=== PATIENT | female | born 1960 | race Two or more races ===

== ENCOUNTER 2020-05-18 21:39 | Inpatient (IN) | payer SELFPAY ==
[~2020-05-18] VITALS: Ht 165.1 cm; Wt 54.3 kg
[2020-05-18] MEDS ORDERED: InsuLIN REG 1unit/0.01ml Soln (100units/ml) IV ONE (22:15)
[2020-05-18] MEDS ORDERED: SODIUM CHLORIDE 0.9% 1,000 ML IV ONE (22:15)
[2020-05-18 23:53] LABS: Basophils # (auto) 0.1 10 ^3/uL (0-0.2); Eosinophils # (auto) 0 10 ^3/uL (0-0.8)
[2020-05-18 23:55] LABS: Basophils % (auto) 0.4 % (0.0-2.0); Hematocrit 49.7 % (36.0-46.0); Hemoglobin 15.5 g/dL (12.2-16.2); Lymphocytes # (auto) 0.9 10 ^3/uL (0.4-5.4); Lymphocytes % (auto) 7.9 % (10.0-50.0); Mean Corpuscular Hemoglobin 32.1 pg (28.0-32.0); Mean Corpuscular Hgb Conc. 31.2 g/dL (32.0-36.0); Mean Corpuscular Volume 102.7 fL (80.0-100.0); Monocytes # (auto) 1.2 10 ^3/uL (0-1.3); Monocytes % (auto) 10.8 % (0.0-12.0); Neutrophils # (auto) 9.3 10 ^3/uL (1.6-8.6); Neutrophils % (auto) 80.9 % (37.0-80.0); Platelet Count (auto) 274 10^3/uL (140-450); Red Blood Cells 4.84 10^6/uL (4.0-5.20); Red Cell Distribution Width 14.4 % (11.8-14.3); White Blood Cell 11.5 10^3/uL (4.4-10.8)
[2020-05-19] MEDS ORDERED: SODIUM BICARBONATE 8.4 % INJ 50ML VIAL IV ONE
[2020-05-19] MEDS ORDERED: SODIUM CHLORIDE 0.9% 1,000 ML IV ONE
[2020-05-19 00:07] LABS: Albumin 3.2 g/dL (3.4-5.0); Anion Gap 23 (5-15); Blood Urea Nitrogen 35 mg/dL (7-18); Calcium 8.2 mg/dL (8.5-10.1); Chloride 119 mmol/L (98-107); Sodium 150 mmol/L (136-145)
[2020-05-19 00:12] LABS: Carbon Dioxide 8 mmol/L (21-32); Potassium 2.8 mmol/L (3.5-5.1)
[2020-05-19 00:15] LABS: Alkaline Phosphatase 99 U/L (45-117)
[2020-05-19 00:23] LABS: Alanine Aminotransferase 22 U/L (13-56); Aspartate Aminotransferase 24 U/L (15-37); BUN/Creatinine Ratio 19.7; GFR African American 37 mL/min; GFR Non-African American 31 mL/min
[2020-05-19 00:26] LABS: Bilirubin, Total 0.4 mg/dL (0.2-1.0); Total Protein 7.6 g/dL (6.4-8.2)
[2020-05-19] MEDS ORDERED: POTASSIUM EFFERVESENT TAB 25 MEQ GT ONE (00:30)
[2020-05-19 00:34] LABS: Glucose 642 mg/dL (74-106)
[2020-05-19] MEDS ORDERED: INSULIN LANTUS (GLARGINE) 1 /0.01ml (100units/ml) SC ONE (00:45)
[2020-05-19] MEDS ORDERED: DEXTROSE (50%) 50ML SYRG IV PRN (00:45)
[2020-05-19] MEDS ORDERED: InsuLIN REG 1unit/0.01ml Soln (100units/ml) ONE (00:48)
[2020-05-19] MEDS: InsuLIN R (HUMAN) 100 UNITS in SODIUM CHL 0.9% 99 ML IV SCH ×3 (00:55→10:34)
[2020-05-19 01:39] LABS: Urine Bacteria FEW /hpf (None Seen); Urine Blood 2+ /uL (Negative); Urine Hyaline Cast FEW /lpf (0 - 2); Urine Mucus FEW (None Seen); Urine Specific Gravity 1.023 (1.001-1.035); Urine WBC 2 /hpf (0 - 5)
[2020-05-19 01:47] LABS: Alcohol, Urine < 3.0 mg/dL (0-10); Amphetamine Screen, Urine NEGATIVE (NEGATIVE); Barbiturate Scree,Urine NEGATIVE (NEGATIVE); Benzodiazephine Screen, Urine NEGATIVE (NEGATIVE); Cannabinoid Screen, Urine NEGATIVE (NEGATIVE); Cocaine Screen, Urine NEGATIVE (NEGATIVE); Opiate Scree,Urine NEGATIVE (NEGATIVE); Phencyclidine Screen, Urine NEGATIVE (NEGATIVE)
[2020-05-19] MEDS: ACCU-CHEK COMFORT CURVE STRIP VI SCH ×14 (02:40→22:41)
[2020-05-19] MEDS ORDERED: LORazepam 2MG/ML-1ML VIAL IV ONE (06:00)
[2020-05-19] MEDS ORDERED: NITROGLYCERIN 0.4 MG SL TAB SL PRN (07:30)
[2020-05-19] MEDS ORDERED: ACETAMINOPHEN 325 MG TAB PO PRN (07:30)
[2020-05-19] MEDS ORDERED: DOCUSATE SOD 100 MG CAP PO PRN (07:30)
[2020-05-19] MEDS ORDERED: SOD CHL 0.45% 1,000 ML IV SCH (07:30)
[2020-05-19] MEDS ORDERED: ONDANSETRON HCL 4 MG/2 ML VIAL IV PRN ×2 (07:30→13:00)
[2020-05-19] MEDS ORDERED: LEVOTHYROXINE SODIUM 50 MCG TAB PO ONE (07:45)
[2020-05-19] MEDS: HEPARIN SODIUM (PORCINE) 5000 UNITS/ML 1ML VIAL SC SCH ×2 (07:45→10:00)
[2020-05-19 09:57] LABS: Basophils # (auto) 0 10 ^3/uL (0-0.2); Basophils % (auto) 0.2 % (0.0-2.0); Eosinophils # (auto) 0 10 ^3/uL (0-0.8); Hematocrit 45.8 % (36.0-46.0); Hemoglobin 15.6 g/dL (12.2-16.2); Lymphocytes # (auto) 0.7 10 ^3/uL (0.4-5.4); Lymphocytes % (auto) 7.6 % (10.0-50.0); Mean Corpuscular Hemoglobin 32.4 pg (28.0-32.0); Mean Corpuscular Volume 95.3 fL (80.0-100.0); Monocytes # (auto) 0.8 10 ^3/uL (0-1.3); Monocytes % (auto) 8.4 % (0.0-12.0); Neutrophils # (auto) 7.9 10 ^3/uL (1.6-8.6); Neutrophils % (auto) 83.8 % (37.0-80.0); Platelet Count (auto) 242 10^3/uL (140-450); Red Blood Cells 4.81 10^6/uL (4.0-5.20); Red Cell Distribution Width 12.9 % (11.8-14.3); White Blood Cell 9.4 10^3/uL (4.4-10.8)
[2020-05-19] MEDS ORDERED: HEPARIN SODIUM (PORCINE) 5000 UNITS/ML 1ML VIAL SC SCH (10:00)
[2020-05-19 10:25] LABS: Albumin 2.9 g/dL (3.4-5.0); BUN/Creatinine Ratio 21.2; Bilirubin, Total 0.3 mg/dL (0.2-1.0); Calcium 8.9 mg/dL (8.5-10.1)
[2020-05-19] MEDS: FAMOTIDINE (10MG/ML) 2ML VL IV SCH (10:34)
[2020-05-19] MEDS: AZITHROMYCIN 500MG/ 250ML 250 ML IV SCH (10:35)
[2020-05-19] MEDS ORDERED: ACETAMINOPHEN 500 MG TAB PO PRN (13:00)
[2020-05-19] MEDS: cefTRIAXone 1GM/50ML D5W 50 ML IV SCH (13:08)
[2020-05-19] MEDS: CHOLECALCIFEROL (VITD3) 2,000 UNIT CAP PO SCH (13:08)
[2020-05-19] MEDS: ASCORBIC ACID 1,000 MG TAB PO SCH (13:08)
[2020-05-19] MEDS: DexAMETHasone SOD PHOS 10MG/1ML VIAL INJ IV SCH (13:08)
[2020-05-19] MEDS: ZINC SULFATE 220mg CAP or TAB PO SCH (13:08)
[2020-05-19] MEDS: D5W 5% 1,000 ML IV SCH (13:21)
[2020-05-19] MEDS ORDERED: POTASSIUM CHLORIDE 40 MEQ, LIDOCAINE 1% (LOCAL ANESTH.) 4 ML in SODIUM CHL 0.9% 250 ML IV ONE (14:00)
[2020-05-19] MEDS ORDERED: DexAMETHasone SOD PHOS 4 MG/1ML SDV INJ ONE (14:34)
[2020-05-19] MEDS: FREE WATER PO SCH (18:13)
[2020-05-19] MEDS: BUDESONIDE (INHALATION) 180 MCG IH IN SCH (22:00)
[2020-05-20] MEDS: ACCU-CHEK COMFORT CURVE STRIP VI SCH ×9 (00:13→20:00)
[2020-05-20] MEDS: LORazepam 2MG/ML-1ML VIAL IV PRN ×4 (01:30→21:40)
[2020-05-20] MEDS: D5W 5% 1,000 ML IV SCH ×4 (03:41→23:47)
[2020-05-20] MEDS: FREE WATER PO SCH ×4 (06:00→17:43)
[2020-05-20 07:05] LABS: Basophils # (auto) 0 10 ^3/uL (0-0.2); Basophils % (auto) 0.3 % (0.0-2.0); Eosinophils # (auto) 0 10 ^3/uL (0-0.8); Hematocrit 44.8 % (36.0-46.0); Hemoglobin 15.1 g/dL (12.2-16.2); Lymphocytes # (auto) 0.9 10 ^3/uL (0.4-5.4); Lymphocytes % (auto) 10.8 % (10.0-50.0); Mean Corpuscular Hemoglobin 31.8 pg (28.0-32.0); Mean Corpuscular Hgb Conc. 33.6 g/dL (32.0-36.0); Mean Corpuscular Volume 94.5 fL (80.0-100.0); Monocytes # (auto) 0.4 10 ^3/uL (0-1.3); Monocytes % (auto) 5.3 % (0.0-12.0); Neutrophils # (auto) 7.1 10 ^3/uL (1.6-8.6); Neutrophils % (auto) 83.6 % (37.0-80.0); Nucleated Red Blood Cells % 0.1 %; Platelet Count (auto) 204 10^3/uL (140-450); Red Blood Cells 4.74 10^6/uL (4.0-5.20); Red Cell Distribution Width 13.1 % (11.8-14.3); White Blood Cell 8.5 10^3/uL (4.4-10.8)
[2020-05-20 07:11] LABS: Potassium 3.5 mmol/L (3.5-5.1)
[2020-05-20 07:19] LABS: Albumin 2.8 g/dL (3.4-5.0); BUN/Creatinine Ratio 13.6; Bilirubin, Total 0.3 mg/dL (0.2-1.0); Calcium 9.2 mg/dL (8.5-10.1); Total Protein 7.3 g/dL (6.4-8.2)
[2020-05-20] MEDS: DexAMETHasone SOD PHOS 10MG/1ML VIAL INJ IV SCH (08:07)
[2020-05-20] MEDS: cefTRIAXone 1GM/50ML D5W 50 ML IV SCH (08:07)
[2020-05-20] MEDS: AZITHROMYCIN 500MG/ 250ML 250 ML IV SCH (08:08)
[2020-05-20] MEDS: ASCORBIC ACID 1,000 MG TAB PO SCH (08:08)
[2020-05-20] MEDS: CHOLECALCIFEROL (VITD3) 2,000 UNIT CAP PO SCH (08:08)
[2020-05-20] MEDS: FAMOTIDINE (10MG/ML) 2ML VL IV SCH (08:08)
[2020-05-20] MEDS: HEPARIN SODIUM (PORCINE) 5000 UNITS/ML 1ML VIAL SC SCH (08:08)
[2020-05-20] MEDS: ZINC SULFATE 220mg CAP or TAB PO SCH (08:08)
[2020-05-20] MEDS ORDERED: diphenhdrAMINE HCL 50 MG/1 ML VL ONE (08:13)
[2020-05-20] MEDS: diphenhdrAMINE HCL 50 MG/1 ML VL IV PRN ×2 (08:25→23:14)
[2020-05-20] MEDS: BUDESONIDE (INHALATION) 180 MCG IH IN SCH ×2 (08:38→21:37)
[2020-05-20] MEDS ORDERED: DEXTROSE (50%) 50ML SYRG IV PRN ×3 (08:45→09:00)
[2020-05-20] MEDS ORDERED: ENOXAPARIN SOD 40 MG/0.4 ML SYRINGE SC SCH (10:00)
[2020-05-20] MEDS ORDERED: INSULIN LANTUS (GLARGINE) 1 /0.01ml (100units/ml) SC SCH (10:00)
[2020-05-20] MEDS ORDERED: AZITHROMYCIN 500MG/ 250ML 250 ML IV SCH (10:00)
[2020-05-20] MEDS: ENOXAPARIN SOD 40 MG/0.4 ML SYRINGE SC SCH (10:23)
[2020-05-20] MEDS ORDERED: InsuLIN REG 1unit/0.01ml Soln (100units/ml) SC SCH ×2 (12:00)
[2020-05-20] MEDS ORDERED: ACCU-CHEK COMFORT CURVE STRIP VI SCH ×2 (12:00)
[2020-05-20] MEDS: InsuLIN REG 1unit/0.01ml Soln (100units/ml) SC SCH ×3 (12:04→21:29)
[2020-05-20] MEDS: INSULIN LANTUS (GLARGINE) 1 /0.01ml (100units/ml) SC SCH (23:20)
[2020-05-21] MEDS: ACCU-CHEK COMFORT CURVE STRIP VI SCH ×6 (00:08→21:10)
[2020-05-21] MEDS: InsuLIN REG 1unit/0.01ml Soln (100units/ml) SC SCH ×6 (00:12→21:10)
[2020-05-21] MEDS: SOD CHL 0.45% 1,000 ML IV SCH ×2 (04:47→17:01)
[2020-05-21] MEDS: FREE WATER PO SCH ×4 (05:36→18:00)
[2020-05-21] MEDS: BUDESONIDE (INHALATION) 180 MCG IH IN SCH ×2 (08:23→18:03)
[2020-05-21] MEDS: ALBUTEROL SULF HFA 90MCG INH 200DOSE IN PRN (08:23)
[2020-05-21] MEDS: cefTRIAXone 1GM/50ML D5W 50 ML IV SCH (08:33)
[2020-05-21] MEDS: AZITHROMYCIN 500MG/ 250ML 250 ML IV SCH (08:33)
[2020-05-21] MEDS: ZINC SULFATE 220mg CAP or TAB PO SCH (08:33)
[2020-05-21] MEDS: FAMOTIDINE (10MG/ML) 2ML VL IV SCH (08:33)
[2020-05-21] MEDS: ASCORBIC ACID 1,000 MG TAB PO SCH (08:33)
[2020-05-21] MEDS: DexAMETHasone SOD PHOS 10MG/1ML VIAL INJ IV SCH (08:33)
[2020-05-21] MEDS: ENOXAPARIN SOD 40 MG/0.4 ML SYRINGE SC SCH (08:34)
[2020-05-21] MEDS: LORazepam 2MG/ML-1ML VIAL IV PRN ×3 (08:34→16:48)
[2020-05-21] MEDS: CHOLECALCIFEROL (VITD3) 2,000 UNIT CAP PO SCH (08:34)
[2020-05-21] MEDS: diphenhdrAMINE HCL 50 MG/1 ML VL IV PRN (08:34)
[2020-05-21] MEDS: MORPHINE SULF INJ 2 MG/ML SYRINGE 1ML IV PRN ×2 (09:05→16:15)
[2020-05-21 13:55] LABS: Basophils # (auto) 0 10 ^3/uL (0-0.2); Basophils % (auto) 0.4 % (0.0-2.0); Eosinophils # (auto) 0 10 ^3/uL (0-0.8); Hematocrit 40.8 % (36.0-46.0); Hemoglobin 13.8 g/dL (12.2-16.2); Lymphocytes # (auto) 0.6 10 ^3/uL (0.4-5.4); Lymphocytes % (auto) 5.9 % (10.0-50.0); Mean Corpuscular Hgb Conc. 33.8 g/dL (32.0-36.0); Mean Corpuscular Volume 94.5 fL (80.0-100.0); Monocytes # (auto) 0.3 10 ^3/uL (0-1.3); Monocytes % (auto) 2.7 % (0.0-12.0); Neutrophils # (auto) 9.3 10 ^3/uL (1.6-8.6); Platelet Count (auto) 155 10^3/uL (140-450); Red Blood Cells 4.32 10^6/uL (4.0-5.20); White Blood Cell 10.2 10^3/uL (4.4-10.8)
[2020-05-21 15:31] LABS: Albumin 2.4 g/dL (3.4-5.0); BUN/Creatinine Ratio 33.8; Bilirubin, Total 0.6 mg/dL (0.2-1.0); Calcium 8.4 mg/dL (8.5-10.1); Potassium 3.1 mmol/L (3.5-5.1); Total Protein 6.5 g/dL (6.4-8.2)
[2020-05-21] MEDS: INSULIN LANTUS (GLARGINE) 1 /0.01ml (100units/ml) SC SCH (22:48)
[2020-05-22] MEDS: ACCU-CHEK COMFORT CURVE STRIP VI SCH ×6 (00:14→20:36)
[2020-05-22] MEDS: LORazepam 2MG/ML-1ML VIAL IV PRN ×2 (00:45→02:08)
[2020-05-22] MEDS: FREE WATER PO SCH ×4 (00:51→16:49)
[2020-05-22] MEDS: InsuLIN REG 1unit/0.01ml Soln (100units/ml) SC SCH ×6 (04:00→20:36)
[2020-05-22 04:56] LABS: Urine Amorphous Crystal FEW /hpf (None Seen); Urine Bacteria FEW /hpf (None Seen); Urine Blood 3+ /uL (Negative); Urine Hyaline Cast FEW /lpf (0 - 2); Urine Mucus FEW (None Seen); Urine Specific Gravity 1.027 (1.001-1.035); Urine WBC 12 /hpf (0 - 5)
[2020-05-22 06:10] LABS: Basophils # (auto) 0 10 ^3/uL (0-0.2); Basophils % (auto) 0.2 % (0.0-2.0); Eosinophils # (auto) 0 10 ^3/uL (0-0.8); Hematocrit 40.2 % (36.0-46.0); Hemoglobin 13.6 g/dL (12.2-16.2); Lymphocytes # (auto) 0.6 10 ^3/uL (0.4-5.4); Lymphocytes % (auto) 5.2 % (10.0-50.0); Mean Corpuscular Hemoglobin 31.9 pg (28.0-32.0); Mean Corpuscular Hgb Conc. 33.9 g/dL (32.0-36.0); Mean Corpuscular Volume 94.2 fL (80.0-100.0); Monocytes # (auto) 0.6 10 ^3/uL (0-1.3); Monocytes % (auto) 5.3 % (0.0-12.0); Neutrophils # (auto) 10.7 10 ^3/uL (1.6-8.6); Neutrophils % (auto) 89.3 % (37.0-80.0); Platelet Count (auto) 154 10^3/uL (140-450); Red Blood Cells 4.27 10^6/uL (4.0-5.20); Red Cell Distribution Width 13.2 % (11.8-14.3)
[2020-05-22 06:19] LABS: BUN/Creatinine Ratio 48.2
[2020-05-22] MEDS: BUDESONIDE (INHALATION) 180 MCG IH IN SCH ×2 (06:40→19:47)
[2020-05-22] MEDS: ALBUTEROL SULF HFA 90MCG INH 200DOSE IN PRN (06:40)
[2020-05-22] MEDS: SOD CHL 0.45% 1,000 ML IV SCH ×2 (06:41→12:05)
[2020-05-22 07:18] LABS: Potassium 2.7 mmol/L (3.5-5.1)
[2020-05-22] MEDS ORDERED: POTASSIUM EFFERVESENT TAB 25 MEQ GT ONE (07:45)
[2020-05-22] MEDS: INSULIN LANTUS (GLARGINE) 1 /0.01ml (100units/ml) SC SCH ×2 (08:02→22:42)
[2020-05-22] MEDS: cefTRIAXone 1GM/50ML D5W 50 ML IV SCH (08:11)
[2020-05-22] MEDS: ZINC SULFATE 220mg CAP or TAB PO SCH (08:12)
[2020-05-22] MEDS: AZITHROMYCIN 500MG/ 250ML 250 ML IV SCH (08:12)
[2020-05-22] MEDS: ASCORBIC ACID 1,000 MG TAB PO SCH (08:12)
[2020-05-22] MEDS: ENOXAPARIN SOD 40 MG/0.4 ML SYRINGE SC SCH (08:12)
[2020-05-22] MEDS: FAMOTIDINE (10MG/ML) 2ML VL IV SCH (08:12)
[2020-05-22] MEDS: CHOLECALCIFEROL (VITD3) 2,000 UNIT CAP PO SCH (08:12)
[2020-05-22 12:44] LABS: Magnesium 2.4 mg/dL (1.6-2.6); Phosphorus 1.9 mg/dL (2.5-4.90)
[2020-05-22] MEDS ORDERED: POTASSIUM PHOSPHATE 44 MEQ in D5W 5% 250 ML IV ONE (13:00)
[2020-05-22] MEDS ORDERED: LORazepam 2MG/ML-1ML VIAL ONE (13:19)
[2020-05-22] MEDS ORDERED: LORazepam 2MG/ML-1ML VIAL IM ONE (13:45)
[2020-05-22] MEDS ORDERED: HALOPERIDOL LACTATE 5 MG/ML INJ VIAL IM PRN (17:45)
[2020-05-22] MEDS ORDERED: D5W/SOD CHL 0.9%/KCL 40MEQ 1,000 ML IV SCH (18:00)
[2020-05-23] MEDS: InsuLIN REG 1unit/0.01ml Soln (100units/ml) SC SCH ×5 (00:39→18:00)
[2020-05-23] MEDS: ACCU-CHEK COMFORT CURVE STRIP VI SCH ×5 (00:39→18:00)
[2020-05-23 06:29] LABS: Calcium 7.3 mg/dL (8.5-10.1)
[2020-05-23] MEDS: INSULIN LANTUS (GLARGINE) 1 /0.01ml (100units/ml) SC SCH ×2 (07:25→22:00)
[2020-05-23] MEDS: cefTRIAXone 1GM/50ML D5W 50 ML IV SCH (09:00)
[2020-05-23] MEDS: ENOXAPARIN SOD 40 MG/0.4 ML SYRINGE SC SCH (10:00)
[2020-05-23] MEDS: CHOLECALCIFEROL (VITD3) 2,000 UNIT CAP PO SCH (10:00)
[2020-05-23] MEDS: ZINC SULFATE 220mg CAP or TAB PO SCH (10:00)
[2020-05-23] MEDS: AZITHROMYCIN 500MG/ 250ML 250 ML IV SCH (10:00)
[2020-05-23] MEDS: ASCORBIC ACID 1,000 MG TAB PO SCH (10:00)
[2020-05-23] MEDS: FAMOTIDINE (10MG/ML) 2ML VL IV SCH (10:00)
[2020-05-23] MEDS ORDERED: POTASSIUM PHOSPHATE 44 MEQ in D5W 5% 250 ML IV ONE (12:45)
[2020-05-23] MEDS ORDERED: Glucerna 1.2 Cal 1Liter BOTTLE GT SCH (15:00)
[2020-05-23] MEDS ORDERED: DEXTROSE (50%) 50ML SYRG IV PRN (15:00)
[2020-05-23] MEDS: BUDESONIDE (INHALATION) 180 MCG IH IN SCH ×2 (15:10→22:00)
[2020-05-24] MEDS: InsuLIN REG 1unit/0.01ml Soln (100units/ml) SC SCH ×5 (00:18→23:54)
[2020-05-24] MEDS: ACCU-CHEK COMFORT CURVE STRIP VI SCH ×5 (00:18→23:54)
[2020-05-24 03:20] VITALS: BP 149/81
[2020-05-24 05:00] VITALS: BP 122/71
[2020-05-24] MEDS: INSULIN LANTUS (GLARGINE) 1 /0.01ml (100units/ml) SC SCH (06:41)
[2020-05-24 08:30] LABS: BUN/Creatinine Ratio 22.5; Calcium 7.2 mg/dL (8.5-10.1)
[2020-05-24 08:34] LABS: Potassium 2.6 mmol/L (3.5-5.1)
[2020-05-24] MEDS: cefTRIAXone 1GM/50ML D5W 50 ML IV SCH (09:02)
[2020-05-24] MEDS: ASCORBIC ACID 1,000 MG TAB PO SCH (09:02)
[2020-05-24] MEDS: ENOXAPARIN SOD 40 MG/0.4 ML SYRINGE SC SCH (09:03)
[2020-05-24] MEDS: CHOLECALCIFEROL (VITD3) 2,000 UNIT CAP PO SCH (09:03)
[2020-05-24] MEDS: AZITHROMYCIN 500MG/ 250ML 250 ML IV SCH (09:04)
[2020-05-24] MEDS: ZINC SULFATE 220mg CAP or TAB PO SCH (09:09)
[2020-05-24] MEDS: FAMOTIDINE (10MG/ML) 2ML VL IV SCH (09:09)
[2020-05-24] MEDS ORDERED: POTASSIUM CHLORIDE 60 MEQ, LIDOCAINE 1% (LOCAL ANESTH.) 6 ML in SODIUM CHL 0.9% 500 ML IV ONE (09:15)
[2020-05-24] MEDS ORDERED: POTASSIUM EFFERVESENT TAB 25 MEQ GT ONE (09:15)
[2020-05-24 09:19] VITALS: BP 119/66
[2020-05-24] MEDS: BUDESONIDE (INHALATION) 180 MCG IH IN SCH ×2 (10:00→18:40)
[2020-05-24 13:00] VITALS: BP 94/56
[2020-05-24] MEDS ORDERED: LORazepam 0.5 MG TAB PO PRN (15:00)
[2020-05-24] MEDS: ALBUTEROL SULF HFA 90MCG INH 200DOSE IN PRN ×2 (15:39→18:57)
[2020-05-24 17:01] VITALS: BP 96/58
[2020-05-24] MEDS: HYDROcodone-ACET 5/325MG TAB PO PRN (20:45)
[2020-05-24 22:28] VITALS: BP 120/70
[2020-05-25 04:40] VITALS: BP 100/50
[2020-05-25] MEDS: BUDESONIDE (INHALATION) 180 MCG IH IN SCH ×2 (06:27→19:05)
[2020-05-25] MEDS: INSULIN LANTUS (GLARGINE) 1 /0.01ml (100units/ml) SC SCH (06:54)
[2020-05-25 06:55] LABS: Basophils # (auto) 0 10 ^3/uL (0-0.2); Basophils % (auto) 0.3 % (0.0-2.0); Eosinophils # (auto) 0.1 10 ^3/uL (0-0.8); Eosinophils % (auto) 1.5 % (0.0-7.0); Hematocrit 33.4 % (36.0-46.0); Hemoglobin 11.4 g/dL (12.2-16.2); Lymphocytes # (auto) 0.9 10 ^3/uL (0.4-5.4); Lymphocytes % (auto) 14.1 % (10.0-50.0); Mean Corpuscular Hemoglobin 32.3 pg (28.0-32.0); Mean Corpuscular Hgb Conc. 34.2 g/dL (32.0-36.0); Mean Corpuscular Volume 94.2 fL (80.0-100.0); Monocytes # (auto) 0.6 10 ^3/uL (0-1.3); Monocytes % (auto) 9.6 % (0.0-12.0); Neutrophils # (auto) 4.9 10 ^3/uL (1.6-8.6); Neutrophils % (auto) 74.5 % (37.0-80.0); Platelet Count (auto) 170 10^3/uL (140-450); Red Blood Cells 3.55 10^6/uL (4.0-5.20); Red Cell Distribution Width 12.5 % (11.8-14.3); White Blood Cell 6.5 10^3/uL (4.4-10.8)
[2020-05-25] MEDS: InsuLIN REG 1unit/0.01ml Soln (100units/ml) SC SCH ×4 (06:56→23:24)
[2020-05-25] MEDS: ACCU-CHEK COMFORT CURVE STRIP VI SCH ×4 (06:56→23:22)
[2020-05-25 07:00] LABS: Calcium 7.3 mg/dL (8.5-10.1); Potassium 3.9 mmol/L (3.5-5.1)
[2020-05-25 07:02] LABS: BUN/Creatinine Ratio 23.7; Phosphorus 2.1 mg/dL (2.5-4.90)
[2020-05-25 09:00] VITALS: BP 94/62
[2020-05-25] MEDS: ASCORBIC ACID 1,000 MG TAB PO SCH (09:30)
[2020-05-25] MEDS: ZINC SULFATE 220mg CAP or TAB PO SCH (09:30)
[2020-05-25] MEDS: FAMOTIDINE (10MG/ML) 2ML VL IV SCH (09:30)
[2020-05-25] MEDS: CHOLECALCIFEROL (VITD3) 2,000 UNIT CAP PO SCH (09:30)
[2020-05-25] MEDS: cefTRIAXone 1GM/50ML D5W 50 ML IV SCH (09:33)
[2020-05-25] MEDS: ENOXAPARIN SOD 40 MG/0.4 ML SYRINGE SC SCH (09:35)
[2020-05-25] MEDS ORDERED: LEVOTHYROXINE SODIUM 25 MCG TAB PO ONE (09:45)
[2020-05-25] MEDS: AZITHROMYCIN 500MG/ 250ML 250 ML IV SCH (11:00)
[2020-05-25 13:00] VITALS: BP 97/59
[2020-05-25 17:00] VITALS: BP 103/57
[2020-05-25] MEDS: NEUTRA-PHOS TABLET PO SCH ×2 (18:15→21:05)
[2020-05-25] MEDS: ALBUTEROL SULF HFA 90MCG INH 200DOSE IN PRN (19:05)
[2020-05-25 21:00] VITALS: BP 105/69
[2020-05-26] VITALS (7 sets, daily range): BP systolic 91–136; BP diastolic 49–70
[2020-05-26] MEDS: ALBUTEROL SULF HFA 90MCG INH 200DOSE IN PRN ×3 (01:54→19:27)
[2020-05-26] MEDS: ACCU-CHEK COMFORT CURVE STRIP VI SCH ×3 (06:03→19:03)
[2020-05-26] MEDS: InsuLIN REG 1unit/0.01ml Soln (100units/ml) SC SCH ×3 (06:08→19:07)
[2020-05-26] MEDS: INSULIN LANTUS (GLARGINE) 1 /0.01ml (100units/ml) SC SCH (06:09)
[2020-05-26] MEDS: LEVOTHYROXINE SODIUM 25 MCG TAB PO SCH (06:10)
[2020-05-26] MEDS: ZINC SULFATE 220mg CAP or TAB PO SCH (09:07)
[2020-05-26] MEDS: NEUTRA-PHOS TABLET PO SCH ×3 (09:07→19:03)
[2020-05-26] MEDS: FAMOTIDINE 20 MG TAB PO SCH (09:07)
[2020-05-26] MEDS: CHOLECALCIFEROL (VITD3) 2,000 UNIT CAP PO SCH (09:08)
[2020-05-26] MEDS: ASCORBIC ACID 1,000 MG TAB PO SCH (09:08)
[2020-05-26] MEDS: ENOXAPARIN SOD 40 MG/0.4 ML SYRINGE SC SCH (09:09)
[2020-05-26] MEDS: BUDESONIDE (INHALATION) 180 MCG IH IN SCH ×2 (10:00→19:27)
[2020-05-26 10:23] LABS: Calcium 7.3 mg/dL (8.5-10.1); Potassium 3.5 mmol/L (3.5-5.1)
[2020-05-26 10:26] LABS: BUN/Creatinine Ratio 19.4
[2020-05-27] MEDS: ACCU-CHEK COMFORT CURVE STRIP VI SCH ×5 (00:21→23:38)
[2020-05-27] MEDS: InsuLIN REG 1unit/0.01ml Soln (100units/ml) SC SCH ×5 (00:29→23:39)
[2020-05-27 05:00] VITALS: BP 120/68
[2020-05-27] MEDS: LEVOTHYROXINE SODIUM 25 MCG TAB PO SCH (05:43)
[2020-05-27] MEDS: INSULIN LANTUS (GLARGINE) 1 /0.01ml (100units/ml) SC SCH (05:44)
[2020-05-27] MEDS: HYDROcodone-ACET 5/325MG TAB PO PRN (05:45)
[2020-05-27] MEDS: ALBUTEROL SULF HFA 90MCG INH 200DOSE IN PRN ×2 (06:21→19:54)
[2020-05-27] MEDS: BUDESONIDE (INHALATION) 180 MCG IH IN SCH ×2 (06:21→19:54)
[2020-05-27 06:47] LABS: Potassium 3.4 mmol/L (3.5-5.1)
[2020-05-27 06:57] LABS: BUN/Creatinine Ratio 18.8; Calcium 7.5 mg/dL (8.5-10.1); Magnesium 2.4 mg/dL (1.6-2.6)
[2020-05-27 08:00] VITALS: BP 116/62
[2020-05-27] MEDS: ENOXAPARIN SOD 40 MG/0.4 ML SYRINGE SC SCH (09:24)
[2020-05-27] MEDS: CHOLECALCIFEROL (VITD3) 2,000 UNIT CAP PO SCH (09:25)
[2020-05-27] MEDS: ZINC SULFATE 220mg CAP or TAB PO SCH (09:25)
[2020-05-27] MEDS: ASCORBIC ACID 1,000 MG TAB PO SCH (09:25)
[2020-05-27] MEDS: FAMOTIDINE 20 MG TAB PO SCH (09:26)
[2020-05-27 12:00] VITALS: BP 107/55
[2020-05-27 17:00] VITALS: BP 125/65
[2020-05-27 22:00] VITALS: BP 108/60
[2020-05-28] MEDS ORDERED: POTASSIUM CHL 20 Meq TABLET PO ONE (03:00)
[2020-05-28 05:00] VITALS: BP 120/65
[2020-05-28] MEDS: ACCU-CHEK COMFORT CURVE STRIP VI SCH ×3 (05:41→17:35)
[2020-05-28] MEDS: InsuLIN REG 1unit/0.01ml Soln (100units/ml) SC SCH ×3 (05:41→17:38)
[2020-05-28] MEDS: LEVOTHYROXINE SODIUM 25 MCG TAB PO SCH (05:42)
[2020-05-28] MEDS: HYDROcodone-ACET 5/325MG TAB PO PRN (06:00)
[2020-05-28] MEDS: INSULIN LANTUS (GLARGINE) 1 /0.01ml (100units/ml) SC SCH (06:25)
[2020-05-28] MEDS ORDERED: POTASSIUM CHL 20 Meq TABLET PO SCH (10:00)
[2020-05-28] MEDS ORDERED: FAMOTIDINE 20 MG TAB PO SCH (10:00)
[2020-05-28] MEDS: BUDESONIDE (INHALATION) 180 MCG IH IN SCH ×3 (10:00→19:21)
[2020-05-28] MEDS: ZINC SULFATE 220mg CAP or TAB PO SCH (10:17)
[2020-05-28] MEDS: ASCORBIC ACID 1,000 MG TAB PO SCH (10:18)
[2020-05-28] MEDS: CHOLECALCIFEROL (VITD3) 2,000 UNIT CAP PO SCH (10:18)
[2020-05-28] MEDS: ENOXAPARIN SOD 40 MG/0.4 ML SYRINGE SC SCH (10:19)
[2020-05-28] MEDS: ALBUTEROL SULF HFA 90MCG INH 200DOSE IN PRN ×2 (11:31→19:21)
[2020-05-28 12:00] VITALS: BP 129/71
[2020-05-28] MEDS ORDERED: acetaZOLAMIDE SODIUM 500 MG VL IV ONE (16:45)
[2020-05-28 17:00] VITALS: BP 125/69
[2020-05-28 19:37] VITALS: BP 125/69
== END 2020-05-28 20:24 | disposition home or self-care (01) | DRG 177 ==
LOC: ER 21:39 → EDBD 21:39 → TELE 21:40 → TELE-WESTW 05-24 03:09
PROVIDERS: ADMIT Nurse Practitioner Family; ATTEND Internal Medicine
PROC: XW13325 Transfusion of Convalescent Plasma (Nonautologous) into Peripheral Vein, Percutaneous Approach, New Technology Group 5 (ICD-10-PCS; principal; 2020-05-26)
DX: U07.1 COVID-19 (principal); E11.10 Type 2 diabetes mellitus with ketoacidosis without coma; E43 Unspecified severe protein-calorie malnutrition; G93.41 Metabolic encephalopathy; J12.89 Other viral pneumonia; N17.0 Acute kidney failure with tubular necrosis; E87.0 Hyperosmolality and hypernatremia; Z68.1 Body mass index [BMI] 19.9 or less, adult; E83.39 Other disorders of phosphorus metabolism; E86.0 Dehydration; E87.6 Hypokalemia; E03.9 Hypothyroidism, unspecified; F17.200 Nicotine dependence, unspecified, uncomplicated; E87.8 Other disorders of electrolyte and fluid balance, not elsewhere classified; Z91.14 Patient's other noncompliance with medication regimen; Z91.19 Patient's noncompliance with other medical treatment and regimen; Z78.1 Physical restraint status; Z79.899 Other long term (current) drug therapy
CPT/HCPCS: 36415; 36600; 70450; 71045; 80048; 80053; 80307; 81001; 82010; 82728; 82805; 82962; 83036; 83735; 83880; 84100; 84132; 84439; 84443; 84484; 85025; 85379; 86141; 86850; 86900; 86901; 87426; 87804; 93005; 93970; 94640; 96361; 96374; 96375; 97110; 97530; G0378; J0696; J1100; J1815; J2001; J2405; J3490; J7060